=== PATIENT | male | born 1970 ===

== ENCOUNTER 2018-02-16 17:18 | Emergency (ER) | payer OTHER ==
[2018-02-16 17:29] VITALS: TEMP 98.2
[2018-02-16 19:01] LABS: BASO # 0.1 K/uL (0.0-0.2); EOS # 0.4 K/uL (0.0-0.7); HEMOGLOBIN 14.2 g/dL (12.0-18.0); LYMPH # 2.3 K/uL (1.0-4.3); LYMPH % 21.9 % (20.0-40.0); MEAN CELL VOLUME 85.7 fl (80.0-94.0); MEAN CORPUSCULAR HEMOGLOBIN 29.6 pg (27.0-31.0); MEAN CORPUSCULAR HGB CONC 34.5 g/dL (33.0-37.0); MEAN PLATELET VOLUME 8.2 fl (7.2-11.7); MONO # 0.7 K/uL (0.0-0.8); MONO % 7.1 % (0.0-10.0); NEUT # 6.9 K/uL (1.8-7.0); RBC 4.78 Mil/uL (4.40-5.90); WHITE BLOOD COUNT 10.5 K/uL (4.8-10.8)
--- NOTE | 2018-02-16 19:01 | ED PDOC ---
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 Denies fever. Went to PMD x2 and started methylprednisolone, terbinafine, clotrimazole and gentamicine cream without improvement. Also takes norvasc for HTN, on it for 7+ years without issue. Symptoms now associated w palpitations and mild dizziness. Denies weight loss, fever, syncope or oral lesions. Has not seen dermatology. Past Medical History Reviewed: Historical Data, Nursing Documentation, Vital Signs Vital Signs: Last Vital Signs Temp 98.2 F 02/16/18 17:27 Pulse 70 02/16/18 21:00 Resp 18 02/16/18 21:00 BP 128/76 02/16/18 21:00 Pulse Ox 97 02/17/18 03:33 - Medical History PMH: Gastritis, HTN - Surgical History Surgical History: Cholecystectomy - Family History Family History: States: Unknown Family Hx - Living Arrangements Living Arrangements: With Family - Social History Current smoker - smoking cessation education provided: No - Allergies Allergies/Adverse Reactions: Allergies Allergy/AdvReac Type Severity Reaction Status Date / Time No Known Allergies Allergy Verified 02/16/18 17:26 Review of Systems Constitutional: Negative for: Fever, Sweats Eyes: Negative for: Vision Change ENT: Negative for: Nose Pain Cardiovascular: Negative for: Chest Pain Respiratory: Negative for: Cough Gastrointestinal: Negative for: Abdominal Pain Genitourinary Male: Negative for: Dysuria Skin: Positive for: Rash, Lesions. Negative for: Bruising Neurological: Negative for: Weakness, Numbness, Headache Psych: Negative for: Depression Physical Exam - Reviewed Nursing Documentation Reviewed: Yes Vital Signs Reviewed: Yes - Physical Exam Appears: Positive for: Well, Non-toxic, No Acute Distress Head Exam: Positive for: ATRAUMATIC, NORMAL INSPECTION (no lesions scalp ), NORMOCEPHALIC Skin: Positive for: Warm, Rash (weeping rash to localized areas of arms, trunk, legs and abdomen. nonurticarial, partially vesicular.) Eye Exam: Positive for: EOMI, Normal appearance, PERRL ENT: Positive for: Normal ENT Inspection, Other (ears bilateral dry/ cracked skin mild edema; no oral lesions). Negative for: Pharyngeal Erythema, Tonsillar Exudate Neck: Positive for: Normal, Painless ROM Cardiovascular/Chest: Positive for: Regular Rate, Rhythm Respiratory: Positive for: CNT, Normal Breath Sounds Pulses-Radial (L): 3+/4+ Pulses-Radial (R): 3+/4+ Gastrointestinal/Abdominal: Positive for: Soft. Negative for: Tenderness Back: Positive for: Normal Inspection Extremity: Positive for: Normal ROM, Capillary Refill (normal), Other (rash as above; L ankle 4cm ulcer nontender medially; neg palm or sole lesions). Negative for: Pedal Edema, Deformity, Swelling Neurologic/Psych: Positive for: Alert, Oriented. Negative for: Motor/Sensory Deficits - Laboratory Results Result Diagrams: 02/16/18 18:57 02/16/18 18:57 - ECG ECG: Positive for: Interpreted By Me ECG Rhythm: Positive for: Normal QRS, Normal ST Segment, Sinus Rhythm Rate: 72 O2 Sat by Pulse Oximetry: 97 Pulse Ox Interpretation: Normal Medical Decision Making Medical Decision Making: will obtain labs, give dose solumedrol concern for occupational exposure of chemicals? needs derm eval if labs otherwise ok Disposition - Clinical Impression Clinical Impression: Rash, Palpitations - Patient ED Disposition Is Patient to be Admitted: Transfer of Care Counseled Patient/Family Regarding: Studies Performed - Disposition Referrals: Shlomo Martinez MD [Staff Provider] - Disposition: Routine/Home Disposition Time: 19:06 Condition: STABLE Instructions: Palpitations, Skin Rash Forms: [facility] (Albanian) Print Language: DIVEHI Patient Signed Over To: Gabino Salvador Handoff Comments: pending labs and reeval dispo
[2018-02-16] MEDS ORDERED: Sodium Chloride 0.9% 1,000 ML IV STA (19:07)
[2018-02-16 19:08] LABS: PARTIAL THROMBOPLASTIN TIME 27.2 Seconds (25.6-37.1); PROTHROMBIN TIME 10.7 Seconds (9.8-13.1)
[2018-02-16 19:11] LABS: ALB/GLOB RATIO 1.2 (1.0-2.1); ALT/SGPT 50 U/L (21-72); AST/SGOT 31 U/L (17-59); BLOOD UREA NITROGEN 22 mg/dl (9-20); CALCIUM 8.8 mg/dL (8.4-10.2); GFR AFRICAN-AMERICAN > 60; GFR NON-AFRICAN AMERICAN > 60
[2018-02-16] MEDS ORDERED: DiphenhydrAMINE 50 mg/ml Inj IV STA (19:18)
[2018-02-16] MEDS ORDERED: DiphenhydrAMINE 50 mg/ml Inj ONE (19:24)
--- NOTE | 2018-02-16 19:34 | ED PDOC ---
- Laboratory Results Result Diagrams: 02/16/18 18:57 02/16/18 18:57 - ECG O2 Sat by Pulse Oximetry: 97 (RA) Pulse Ox Interpretation: Normal Medical Decision Making Medical Decision Making: Time: [address] Meek pending labs, re-evaluation and dispo. Time: 1999 Labs reviewed with no acute abnormalities. On reevaluation, patient is well appearing and with normal vitals. 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 Return precautions provided as well. Scribe Attestation: Documented by Verenice Bruno, acting as a scribe for Gabino Salvador MD. Provider Scribe Attestation: All medical record entries made by the Scribe were at my direction and personally dictated by me. I have reviewed the chart and agree that the record accurately reflects my personal performance of the history, physical exam, medical decision making, and the department course for this patient. I have also personally directed, reviewed, and agree with the discharge instructions and disposition. Disposition - Clinical Impression Clinical Impression: Rash, Palpitations - POA Present On Arrival: None - Disposition Referrals: Shlomo Martinez MD [Staff Provider] - Disposition: Routine/Home Disposition Time: 20:00 Condition: STABLE Instructions: Palpitations, Skin Rash Forms: [facility] (Sinhala) Print Language: CITIZEN OF [place]
[2018-02-16 21:00] VITALS: BP 128/76; RESP 18
[2018-02-17 03:33] VITALS: O2SAT 97
--- NOTE | 2018-02-17 13:47 | CARD ---
APPROVED REPORT Date of service: 02/16/2018 EKG Measurement Heart [id number] <Conclusion> Normal sinus rhythm Normal ECG
[2018-02-20 14:49] VITALS: PULSE 72
== END 2018-02-16 21:08 | disposition home or self-care (01) ==
LOC: H.ER 17:18
DX: R21 Rash and other nonspecific skin eruption (principal); R00.2 Palpitations; I10 Essential (primary) hypertension
CPT/HCPCS: 80053; 84484; 85025; 85610; 85730; 93005; 96361; 96374; 96375; 99282; J1200; J2930; J7030